=== PATIENT | female | born 1950 | race African-American/Black ===

== ENCOUNTER 2019-02-19 15:08 | Inpatient (IN) | payer MEDICARE, OTHER ==
[~2019-02-19] VITALS: Ht 165.1 cm; Wt 92.5 kg
[2019-02-19] MEDS ORDERED: MORPHINE SULFATE 4 MG/ML CPJ (NOT FOR IM USE) IV STA (16:02)
[2019-02-19 16:47] LABS: HEMATOCRIT. 34.6 % (36.0-48.0); HEMOGLOBIN. 11.7 g/dL (12.0-16.0); MEAN CORPUSCULAR HEMOGLOBIN 32.6 pg (28.0-32.0); MEAN PLATELET VOLUME 7.7 fl (7.4-10.4); PLATELET 267 x1000/uL (130-400); RED CELL DISTRIBUTION WIDTH 15.1 % (11.6-14.6)
[2019-02-19 16:51] LABS: CHLORIDE 102 mEq/L (98-107)
[2019-02-19 17:03] LABS: PLATELET ESTIMATE NORMAL
[2019-02-19] MEDS ORDERED: ONDANSETRON HCL 4MG/2ML INJ IV PRN (18:30)
[2019-02-19] MEDS ORDERED: ACETAMINOPHEN 325MG TABLET PO PRN (18:30)
[2019-02-19 23:00] VITALS: BP 157/91
[2019-02-19 23:29] VITALS: BP 157/91
[2019-02-20] MEDS: METOPROLOL TARTRATE 25MG TABLET PO SCH ×3 (01:01→20:36)
[2019-02-20] MEDS: NITROGLYCERIN OINT 1GM/INCH UDPKT TD SCH ×4 (01:01→21:26)
[2019-02-20] MEDS ORDERED: OXYB5TAB11 PO (02:02)
[2019-02-20] MEDS ORDERED: DICL75TA5 PO (02:02)
[2019-02-20] MEDS ORDERED: AMLO5TAB88 PO (02:02)
[2019-02-20] MEDS ORDERED: LEVO25TA7 PO (02:02)
[2019-02-20] MEDS ORDERED: ATOR40TA70 PO (02:02)
[2019-02-20] MEDS ORDERED: OMEP40CA34 PO (02:02)
[2019-02-20] MEDS ORDERED: ASPI-1393 PO (02:02)
[2019-02-20 04:00] VITALS: BP 136/82
[2019-02-20 07:03] LABS: HEMATOCRIT. 34.2 % (36.0-48.0); HEMOGLOBIN. 11.5 g/dL (12.0-16.0); MEAN CORPUSCULAR HEMOGLOBIN 32.1 pg (28.0-32.0); MEAN CORPUSCULAR VOLUME 95.5 fL (81.0-99.0); MEAN PLATELET VOLUME 8.2 fl (7.4-10.4); PLATELET 275 x1000/uL (130-400); RED BLOOD CELL COUNT 3.58 mill/uL (4.2-5.4); RED CELL DISTRIBUTION WIDTH 15.1 % (11.6-14.6)
[2019-02-20 08:00] VITALS: BP 144/91
[2019-02-20] MEDS: BUDESONIDE 0.5MG/2ML NEB HHN SCH ×3 (08:32→22:00)
[2019-02-20] MEDS: IPRATROPIUM/ALBUTEROL 0.5-3(2.5)MG/3ML NEB HHN PRN (08:32)
[2019-02-20] MEDS: ASPIRIN 81MG TABLET PO SCH (09:10)
[2019-02-20 12:00] VITALS: BP 129/80
[2019-02-20 12:01] LABS: PLATELET ESTIMATE NORMAL
[2019-02-20] MEDS: SODIUM CHLORIDE 0.9% 1,000 ML IV SCH (13:05)
[2019-02-20 16:15] LABS: CLARITY URINE CLEAR (CLEAR); COLOR URINE YELLOW (YELLOW); KETONES URINE NEGATIVE (NEGATIVE); LEUKOCYTE ESTERASE URINE NEGATIVE (NEGATIVE); NITRITE URINE NEGATIVE (NEGATIVE); OCCULT BLOOD URINE NEGATIVE (NEGATIVE); PH URINE 6.5 (4.5-8.0); PROTEIN URINE 2+ (NEGATIVE); SPECIFIC GRAVITY URINE 1.017 (1.005-1.030); UROBILINOGEN URINE 0.2 E.U./dL (0.2-1.0)
[2019-02-20 16:30] VITALS: BP 147/99
[2019-02-20 16:30] LABS: *AMPHETAMINES SCREEN URINE NEGATIVE (NEGATIVE); *BARBITURATES SCREEN URINE NEGATIVE (NEGATIVE); *BENZODIAZEPINES SCREEN URINE NEGATIVE (NEGATIVE); *COCAINE SCREEN URINE NEGATIVE (NEGATIVE)
[2019-02-20 16:31] LABS: CANNABINOID URINE SCREEN NEGATIVE (NEGATIVE); METHADONE URINE SCREEN NEGATIVE (NEGATIVE); OPIATES URINE SCREEN PRESUMTIVE POSITIVE (NEGATIVE); PHENCYCLIDINE URINE SCREEN NEGATIVE (NEGATIVE)
[2019-02-20] MEDS: CLOPIDOGREL 75MG TABLET PO SCH (18:14)
[2019-02-20 18:53] LABS: T4 FREE 0.47 ng/dL (0.76-1.46)
[2019-02-20 19:12] LABS: FOLIC ACID (FOLATE) SERUM 5.3 ng/mL (>5.38)
[2019-02-20 20:00] VITALS: BP 159/88
[2019-02-21] VITALS: BP 113/82
[2019-02-21 04:00] VITALS: BP 144/88
[2019-02-21] MEDS: SODIUM CHLORIDE 0.9% 1,000 ML IV SCH ×2 (04:52→15:10)
[2019-02-21] MEDS: LEVOTHYROXINE SODIUM 50MCG TABLET PO SCH (06:16)
[2019-02-21] MEDS: NITROGLYCERIN OINT 1GM/INCH UDPKT TD SCH ×3 (06:17→22:21)
[2019-02-21 07:40] LABS: HEMATOCRIT. 35.1 % (36.0-48.0); MEAN CORPUSCULAR VOLUME 96.2 fL (81.0-99.0); MEAN PLATELET VOLUME 7.8 fl (7.4-10.4); PLATELET 268 x1000/uL (130-400); RED BLOOD CELL COUNT 3.65 mill/uL (4.2-5.4); RED CELL DISTRIBUTION WIDTH 14.7 % (11.6-14.6)
[2019-02-21 08:00] VITALS: BP 160/93
[2019-02-21] MEDS: ASPIRIN 81MG TABLET PO SCH (09:27)
[2019-02-21] MEDS: CLOPIDOGREL 75MG TABLET PO SCH (09:27)
[2019-02-21] MEDS: METOPROLOL TARTRATE 25MG TABLET PO SCH ×2 (09:28→22:21)
[2019-02-21] MEDS: FOLIC ACID 1MG TABLET PO SCH (11:12)
[2019-02-21] MEDS: ENOXAPARIN 40MG/0.4ML SYR SUBCUT SCH (11:13)
[2019-02-21 11:26] LABS: PLATELET ESTIMATE NORMAL
[2019-02-21 12:00] VITALS: BP 158/89
[2019-02-21] MEDS: BUDESONIDE 0.5MG/2ML NEB HHN SCH ×2 (12:15→20:47)
[2019-02-21] MEDS: IPRATROPIUM/ALBUTEROL 0.5-3(2.5)MG/3ML NEB HHN PRN ×2 (12:20→20:49)
[2019-02-21 16:00] VITALS: BP 157/89
[2019-02-21 20:00] VITALS: BP 143/91
[2019-02-21] MEDS: ATORVASTATIN CALCIUM 40MG TABLET PO SCH (22:21)
[2019-02-22] VITALS: BP 142/87
[2019-02-22 04:00] VITALS: BP 149/98
[2019-02-22] MEDS: SODIUM CHLORIDE 0.9% 1,000 ML IV SCH ×2 (04:49→16:45)
[2019-02-22 06:10] LABS: BASOPHILS % 0.5 % (0.0-2.0); EOSINOPHILS % 0.4 % (0.0-5.0); HEMATOCRIT. 35.9 % (36.0-48.0); HEMOGLOBIN. 12.1 g/dL (12.0-16.0); LYMPHOCYTES % 12.5 % (20.0-50.0); MEAN CORPUSCULAR HEMOGLOBIN 32.3 pg (28.0-32.0); MEAN CORPUSCULAR VOLUME 95.8 fL (81.0-99.0); MONOCYTES % 6.3 % (2.0-8.0); NEUTROPHILS % 80.3 % (40.0-76.0); PLATELET 265 x1000/uL (130-400); RED BLOOD CELL COUNT 3.75 mill/uL (4.2-5.4); RED CELL DISTRIBUTION WIDTH 14.8 % (11.6-14.6)
[2019-02-22 06:21] LABS: CHLORIDE 103 mEq/L (98-107)
[2019-02-22] MEDS: NITROGLYCERIN OINT 1GM/INCH UDPKT TD SCH ×3 (07:59→21:34)
[2019-02-22] MEDS: LEVOTHYROXINE SODIUM 50MCG TABLET PO SCH (07:59)
[2019-02-22 08:00] VITALS: BP 151/91
[2019-02-22] MEDS: IPRATROPIUM/ALBUTEROL 0.5-3(2.5)MG/3ML NEB HHN PRN ×3 (08:48→20:29)
[2019-02-22] MEDS: FOLIC ACID 1MG TABLET PO SCH (09:42)
[2019-02-22] MEDS: ASPIRIN 81MG TABLET PO SCH (09:42)
[2019-02-22] MEDS: CLOPIDOGREL 75MG TABLET PO SCH (09:42)
[2019-02-22] MEDS: METOPROLOL TARTRATE 25MG TABLET PO SCH ×2 (09:44→21:34)
[2019-02-22] MEDS: ENOXAPARIN 40MG/0.4ML SYR SUBCUT SCH (09:44)
[2019-02-22] MEDS ORDERED: POTASSIUM CHLORIDE 20MEQ TABLET SR PO NR (10:45)
[2019-02-22] MEDS: BUDESONIDE 0.5MG/2ML NEB HHN SCH ×2 (11:48→20:30)
[2019-02-22 12:00] VITALS: BP 135/89
[2019-02-22 16:00] VITALS: BP 136/96
[2019-02-22 20:00] VITALS: BP 128/91
[2019-02-22] MEDS: ATORVASTATIN CALCIUM 40MG TABLET PO SCH (21:33)
[2019-02-23] VITALS: BP 140/86
[2019-02-23 04:27] VITALS: BP 128/85
[2019-02-23] MEDS: SODIUM CHLORIDE 0.9% 1,000 ML IV SCH ×2 (06:01→21:15)
[2019-02-23] MEDS: LEVOTHYROXINE SODIUM 50MCG TABLET PO SCH (06:01)
[2019-02-23] MEDS: NITROGLYCERIN OINT 1GM/INCH UDPKT TD SCH (06:01)
[2019-02-23 08:00] VITALS: BP 117/71
[2019-02-23] MEDS: FOLIC ACID 1MG TABLET PO SCH (10:31)
[2019-02-23] MEDS: METOPROLOL TARTRATE 25MG TABLET PO SCH ×2 (10:31→21:15)
[2019-02-23] MEDS: CLOPIDOGREL 75MG TABLET PO SCH (10:31)
[2019-02-23] MEDS: ASPIRIN 81MG TABLET PO SCH (10:31)
[2019-02-23] MEDS: ENOXAPARIN 40MG/0.4ML SYR SUBCUT SCH (11:21)
[2019-02-23 12:00] VITALS: BP 137/85
[2019-02-23] MEDS ORDERED: LACTULOSE 20G/30ML UDC PO SCH (12:15)
[2019-02-23] MEDS ORDERED: LACTULOSE 20G/30ML UDC PO PRN (12:15)
[2019-02-23] MEDS: DOCUSATE SODIUM 250MG CAPSULE PO SCH (13:23)
[2019-02-23 16:00] VITALS: BP 138/87
[2019-02-23 16:43] LABS: CHLORIDE 107 mEq/L (98-107)
[2019-02-23 20:00] VITALS: BP 154/100
[2019-02-23] MEDS: ATORVASTATIN CALCIUM 40MG TABLET PO SCH (21:15)
[2019-02-24] VITALS: BP 118/70
[2019-02-24 04:00] VITALS: BP 112/84
[2019-02-24] MEDS: LEVOTHYROXINE SODIUM 50MCG TABLET PO SCH (06:10)
[2019-02-24] MEDS: METOPROLOL TARTRATE 25MG TABLET PO SCH ×3 (09:00→22:06)
[2019-02-24] MEDS: CLOPIDOGREL 75MG TABLET PO SCH (09:00)
[2019-02-24 09:31] LABS: BASOPHILS % 0.4 % (0.0-2.0); EOSINOPHILS % 0.7 % (0.0-5.0); HEMATOCRIT. 35.8 % (36.0-48.0); HEMOGLOBIN. 11.9 g/dL (12.0-16.0); LYMPHOCYTES % 9.1 % (20.0-50.0); MEAN CORPUSCULAR HEMOGLOBIN 32.3 pg (28.0-32.0); MEAN CORPUSCULAR VOLUME 96.9 fL (81.0-99.0); MEAN PLATELET VOLUME 7.8 fl (7.4-10.4); MONOCYTES % 4.4 % (2.0-8.0); NEUTROPHILS % 85.4 % (40.0-76.0); PLATELET 246 x1000/uL (130-400); RED BLOOD CELL COUNT 3.69 mill/uL (4.2-5.4); RED CELL DISTRIBUTION WIDTH 14.5 % (11.6-14.6)
[2019-02-24 09:52] LABS: CHLORIDE 108 mEq/L (98-107)
[2019-02-24 09:56] LABS: PHOSPHORUS 2.3 mg/dL (2.5-4.9)
[2019-02-24] MEDS ORDERED: BISACODYL 10MG SUPP PR NR (11:30)
[2019-02-24] MEDS ORDERED: POTASSIUM-SODIUM PHOSPHATE POWDER PACKET PO NR (11:45)
[2019-02-24] MEDS: DOCUSATE SODIUM 250MG CAPSULE PO SCH (12:37)
[2019-02-24] MEDS: FOLIC ACID 1MG TABLET PO SCH (12:38)
[2019-02-24] MEDS: ENOXAPARIN 40MG/0.4ML SYR SUBCUT SCH (12:38)
[2019-02-24] MEDS: SODIUM CHLORIDE 0.9% 1,000 ML IV SCH ×2 (17:59→22:21)
[2019-02-24 20:00] VITALS: BP 115/77
[2019-02-24] MEDS: ATORVASTATIN CALCIUM 40MG TABLET PO SCH (22:05)
[2019-02-25] VITALS: BP 119/71
[2019-02-25] MEDS: FOLIC ACID 1MG TABLET PO SCH (09:51)
[2019-02-25] MEDS: CLOPIDOGREL 75MG TABLET PO SCH (09:51)
[2019-02-25] MEDS: LEVOTHYROXINE SODIUM 50MCG TABLET PO SCH (09:51)
[2019-02-25] MEDS: DOCUSATE SODIUM 250MG CAPSULE PO SCH (09:52)
[2019-02-25] MEDS: METOPROLOL TARTRATE 25MG TABLET PO SCH ×2 (09:52→20:28)
[2019-02-25] MEDS: ENOXAPARIN 40MG/0.4ML SYR SUBCUT SCH (09:53)
[2019-02-25 20:00] VITALS: BP 106/69
[2019-02-25] MEDS: ATORVASTATIN CALCIUM 40MG TABLET PO SCH (20:36)
[2019-02-25] MEDS: SODIUM CHLORIDE 0.9% 1,000 ML IV SCH (22:06)
[2019-02-26] VITALS: BP 110/65
[2019-02-26 04:00] VITALS: BP 110/72
[2019-02-26] MEDS: LEVOTHYROXINE SODIUM 50MCG TABLET PO SCH (06:11)
[2019-02-26 08:00] VITALS: BP 119/73
[2019-02-26] MEDS: FOLIC ACID 1MG TABLET PO SCH (09:42)
[2019-02-26] MEDS: CLOPIDOGREL 75MG TABLET PO SCH (09:42)
[2019-02-26] MEDS: DOCUSATE SODIUM 250MG CAPSULE PO SCH (09:42)
[2019-02-26] MEDS: METOPROLOL TARTRATE 25MG TABLET PO SCH ×2 (09:43→20:38)
[2019-02-26] MEDS: ENOXAPARIN 40MG/0.4ML SYR SUBCUT SCH (11:06)
[2019-02-26 11:56] VITALS: BP 106/76
[2019-02-26 16:00] VITALS: BP 122/69
[2019-02-26 16:41] LABS: CHLORIDE 110 mEq/L (98-107)
[2019-02-26 16:52] LABS: BASOPHILS % 0.6 % (0.0-2.0); EOSINOPHILS % 2.2 % (0.0-5.0); HEMOGLOBIN. 11.4 g/dL (12.0-16.0); MEAN CORPUSCULAR HEMOGLOBIN 32.3 pg (28.0-32.0); MEAN PLATELET VOLUME 8.5 fl (7.4-10.4); MONOCYTES % 6.1 % (2.0-8.0); NEUTROPHILS % 75.1 % (40.0-76.0); PLATELET 243 x1000/uL (130-400); RED BLOOD CELL COUNT 3.54 mill/uL (4.2-5.4); RED CELL DISTRIBUTION WIDTH 14.8 % (11.6-14.6)
[2019-02-26 16:53] LABS: PHOSPHORUS 2.5 mg/dL (2.5-4.9)
[2019-02-26] MEDS: SODIUM CHLORIDE 0.9% 1,000 ML IV SCH (18:17)
[2019-02-26 20:00] VITALS: BP 121/87
[2019-02-26] MEDS: ATORVASTATIN CALCIUM 40MG TABLET PO SCH (20:37)
[2019-02-27 00:24] VITALS: BP 116/82
[2019-02-27] MEDS: IPRATROPIUM/ALBUTEROL 0.5-3(2.5)MG/3ML NEB HHN PRN (03:42)
[2019-02-27] MEDS: SODIUM CHLORIDE 0.9% 1,000 ML IV SCH ×3 (04:00→18:22)
[2019-02-27 04:29] VITALS: BP 129/74
[2019-02-27] MEDS: LEVOTHYROXINE SODIUM 50MCG TABLET PO SCH (05:50)
[2019-02-27 08:00] VITALS: BP 130/82
[2019-02-27] MEDS: CLOPIDOGREL 75MG TABLET PO SCH (09:53)
[2019-02-27] MEDS: DOCUSATE SODIUM 250MG CAPSULE PO SCH (09:53)
[2019-02-27] MEDS: ENOXAPARIN 40MG/0.4ML SYR SUBCUT SCH (09:53)
[2019-02-27] MEDS: FOLIC ACID 1MG TABLET PO SCH (09:53)
[2019-02-27] MEDS: METOPROLOL TARTRATE 25MG TABLET PO SCH ×2 (09:55→21:12)
[2019-02-27 12:00] VITALS: BP 120/71
[2019-02-27] MEDS: LACTULOSE 20G/30ML UDC PO SCH ×2 (14:58→21:12)
[2019-02-27 16:00] VITALS: BP 144/92
[2019-02-27 20:00] VITALS: BP 126/69
[2019-02-27] MEDS: ATORVASTATIN CALCIUM 40MG TABLET PO SCH (21:12)
[2019-02-28] VITALS (7 sets, daily range): BP systolic 119–154; BP diastolic 60–88
[2019-02-28] MEDS: LACTULOSE 20G/30ML UDC PO SCH ×2 (07:07→14:35)
[2019-02-28] MEDS: SODIUM CHLORIDE 0.9% 1,000 ML IV SCH (07:07)
[2019-02-28] MEDS: LEVOTHYROXINE SODIUM 50MCG TABLET PO SCH (07:07)
[2019-02-28] MEDS: DOCUSATE SODIUM 250MG CAPSULE PO SCH (08:38)
[2019-02-28] MEDS: METOPROLOL TARTRATE 25MG TABLET PO SCH ×2 (08:38→21:14)
[2019-02-28] MEDS: FOLIC ACID 1MG TABLET PO SCH (08:38)
[2019-02-28] MEDS: CLOPIDOGREL 75MG TABLET PO SCH (08:38)
[2019-02-28] MEDS: ENOXAPARIN 40MG/0.4ML SYR SUBCUT SCH (08:39)
[2019-02-28] MEDS: ATORVASTATIN CALCIUM 40MG TABLET PO SCH (21:13)
== END 2019-02-28 22:31 | DRG 64 ==
LOC: ER 15:08 → 5WST 17:49 → EDBEDREQ 17:59 → ENRESERV 20:44
PROVIDERS: ADMIT Internal Medicine; ATTEND Internal Medicine
DX: I63.9 Cerebral infarction, unspecified (principal); G93.41 Metabolic encephalopathy; N17.0 Acute kidney failure with tubular necrosis; I69.354 Hemiplegia and hemiparesis following cerebral infarction affecting left non-dominant side; J98.11 Atelectasis; D64.9 Anemia, unspecified; E03.9 Hypothyroidism, unspecified; E66.9 Obesity, unspecified; I10 Essential (primary) hypertension; J44.9 Chronic obstructive pulmonary disease, unspecified; R26.9 Unspecified abnormalities of gait and mobility; R47.1 Dysarthria and anarthria; R13.10 Dysphagia, unspecified; R47.01 Aphasia; E87.6 Hypokalemia; D72.829 Elevated white blood cell count, unspecified; Z87.891 Personal history of nicotine dependence; Z79.899 Other long term (current) drug therapy; Z79.82 Long term (current) use of aspirin; Z68.33 Body mass index [BMI] 33.0-33.9, adult
CPT/HCPCS: 36415; 70544; 70551; 71045; 74018; 80048; 80053; 80061; 80305; 81003; 82140; 82607; 82746; 83036; 83735; 83880; 84100; 84145; 84439; 84443; 84481; 84484; 85025; 92523; 92610; 93005; 93306; 93880; 93970; 94640; 96374; 97110; 97162; 97167; 97530; 97535; 99285; C1893; J1650; J2270; J2405; J7030; J7620; J7626